=== PATIENT | male | born 1970 | race African-American/Black ===

== ENCOUNTER 2025-04-04 13:32 | Emergency (ER) | payer OTHER ==
[2025-04-04 14:20] LABS: #Basophils 0.03 10x3/uL (0.0-0.2); #Eosinophils 0.13 10x3/uL (0.0-0.5); #Monocytes 0.45 10x3/uL (0.0-1.1); #Neutrophils 2.77 10x3/uL (1.5-8.4); %Basophils 0.5 % (0.0-2.0); %Eosinophils 2.3 % (0.0-6.0); %Lymphocytes 39.6 % (18.0-47.0); %Monocytes 8.0 % (0.0-10.0); %Neutrophils 49.4 % (40.0-75.0); Hematocrit 43.8 % (38.8-50.0); Hemoglobin 12.9 g/dL (13.5-17.5); Mean Corpuscular Hemoglobin 23.5 pg (27.0-33.0); Mean Corpuscular Volume 79.6 fL (81.2-95.1); Platelet Count 191 10x3/uL (150-450); Red Blood Cell (RBC) Count 5.50 10x6/uL (4.32-5.72); White Blood Cell (WBC) Count 5.61 10x3/uL (3.5-10.5)
[2025-04-04 15:08] LABS: ALT (SGPT) 19 U/L (Less than 45); AST (SGOT) 16 U/L (11-34); Albumin 3.7 g/dL (3.1-4.5); Alkaline Phosphatase 83 U/L (40-110); Anion Gap 15 mmol/L (10-20); BUN (Urea Nitrogen) 12 mg/dL (8.4-25.7); Bilirubin, Total 0.5 mg/dL (0.3-1.2); Calc. Creatinine Clearance 0 mL/min (70-130); Calcium 8.9 mg/dL (7.8-10.44); Carbon Dioxide 26 mmol/L (22-29); Chloride 105 mmol/L (98-107); Globulin 3.3 g/dL (2.4-3.5); Glucose 117 mg/dL (70-105); Potassium 4.1 mmol/L (3.5-5.1); Sodium 142 mmol/L (136-145)
[2025-04-04 15:14] LABS: Troponin I Less than 0.010 ng/mL (< 0.028)
[2025-04-04 16:56] LABS: Troponin I 0.010 ng/mL (< 0.028)
== END 2025-04-04 17:27 ==
LOC: CSHERS 13:32 → EEVIPCON 13:32 → CSHERS 17:27
DX: R07.9 Chest pain, unspecified (principal); E11.9 Type 2 diabetes mellitus without complications
CPT/HCPCS: 36415; 71045; 80053; 83880; 84484; 85025; 93005; 96374; J2270

== ENCOUNTER 2025-05-19 19:50 | Inpatient (IN) | payer OTHER ==
[2025-05-19 20:28] LABS: #Basophils 0.03 10x3/uL (0.0-0.2); #Eosinophils 0.08 10x3/uL (0.0-0.5); #Monocytes 0.64 10x3/uL (0.0-1.1); #Neutrophils 7.02 10x3/uL (1.5-8.4); %Basophils 0.3 % (0.0-2.0); %Eosinophils 0.8 % (0.0-6.0); %Lymphocytes 20.7 % (18.0-47.0); %Monocytes 6.5 % (0.0-10.0); %Neutrophils 71.4 % (40.0-75.0); Hematocrit 42.9 % (38.8-50.0); Hemoglobin 12.6 g/dL (13.5-17.5); Mean Corpuscular Hemoglobin 23.2 pg (27.0-33.0); Mean Corpuscular Volume 78.9 fL (81.2-95.1); Platelet Count 181 10x3/uL (150-450); Red Blood Cell (RBC) Count 5.44 10x6/uL (4.32-5.72); White Blood Cell (WBC) Count 9.84 10x3/uL (3.5-10.5)
[2025-05-19] MEDS ORDERED: Furosemide 40 MG (4 mL) VIAL ONE (20:38)
[2025-05-19 20:47] LABS: ALT (SGPT) 20 U/L (Less than 45); AST (SGOT) 17 U/L (11-34); Albumin 3.7 g/dL (3.1-4.5); Alkaline Phosphatase 79 U/L (40-110); Anion Gap 16 mmol/L (10-20); BUN (Urea Nitrogen) 12 mg/dL (8.4-25.7); Bilirubin, Total 0.7 mg/dL (0.3-1.2); Calc. Creatinine Clearance 0 mL/min (70-130); Calcium 8.8 mg/dL (7.8-10.44); Carbon Dioxide 24 mmol/L (22-29); Chloride 102 mmol/L (98-107); Globulin 3.1 g/dL (2.4-3.5); Glucose 113 mg/dL (70-105); Potassium 4.3 mmol/L (3.5-5.1); Sodium 138 mmol/L (136-145)
[2025-05-19 20:49] LABS: Troponin I Less than 0.010 ng/mL (< 0.028)
[2025-05-19] MEDS ORDERED: Enoxaparin 30 MG (0.3 mL) SYRINGE ONE (23:20)
[2025-05-20] MEDS ORDERED: Nitroglycerin 0.4 MG TAB (25 Tab Bottle) SL PRN ×2 (00:51→17:20)
[2025-05-20 01:39] LABS: INR-International Normal Ratio 1.1; PTT 33.9 sec (22.0-33.0); Prothrombin Time 12.3 sec (9.5-12.1)
[2025-05-20 01:41] LABS: Magnesium 1.5 mg/dL (1.6-2.6)
[2025-05-20 01:48] LABS: Troponin I Less than 0.010 ng/mL (< 0.028)
[2025-05-20] MEDS ORDERED: Ketorolac Tromethamine 30 MG (1 mL) VIAL ONE (01:57)
[2025-05-20] MEDS: Ketorolac Tromethamine 30 MG (1 mL) VIAL IVP PRN (02:00)
[2025-05-20 04:13] LABS: #Basophils Less than 0.03 10x3/uL (0.0-0.2); #Eosinophils 0.05 10x3/uL (0.0-0.5); #Monocytes 0.83 10x3/uL (0.0-1.1); #Neutrophils 9.00 10x3/uL (1.5-8.4); %Basophils 0.2 % (0.0-2.0); %Eosinophils 0.4 % (0.0-6.0); %Lymphocytes 14.3 % (18.0-47.0); %Monocytes 7.2 % (0.0-10.0); %Neutrophils 77.6 % (40.0-75.0); Hematocrit 41.5 % (38.8-50.0); Hemoglobin 12.2 g/dL (13.5-17.5); Mean Corpuscular Hemoglobin 23.0 pg (27.0-33.0); Mean Corpuscular Volume 78.2 fL (81.2-95.1); Platelet Count 168 10x3/uL (150-450); Red Blood Cell (RBC) Count 5.31 10x6/uL (4.32-5.72); White Blood Cell (WBC) Count 11.60 10x3/uL (3.5-10.5)
[2025-05-20 04:28] LABS: Anion Gap 12 mmol/L (10-20); BUN (Urea Nitrogen) 13 mg/dL (8.4-25.7); Calc. Creatinine Clearance 0 mL/min (70-130); Calcium 9.0 mg/dL (7.8-10.44); Carbon Dioxide 28 mmol/L (22-29); Cardiac Risk 3.5 (Less than 4.5); Chloride 100 mmol/L (98-107); Cholesterol 120 mg/dl (< 200 Desired); Glucose 204 mg/dL (70-105); HDL Cholesterol 34 mg/dL (>60 Neg Risk); LDL Cholesterol, Calculated 73 mg/dL; Potassium 3.5 mmol/L (3.5-5.1); Sodium 136 mmol/L (136-145); Triglycerides 65 mg/dL (Less than 150)
[2025-05-20 04:31] LABS: Troponin I Less than 0.010 ng/mL (< 0.028)
[2025-05-20] MEDS ORDERED: Dextrose 50% Abboject 50 ML SYRINGE SLOW IVP PRN (04:41)
[2025-05-20] MEDS ORDERED: Glucagon 1 MG/ML KIT IM PRN (04:41)
[2025-05-20] MEDS ORDERED: Magnesium 2 GM/50 ML BAG (IN WATER) ONE (05:03)
[2025-05-20] MEDS: Magnesium 2 GM/50 ML(in water) 2 GM in Premix 1 BAG IVPB SCH (05:12)
[2025-05-20] MEDS ORDERED: Aspirin Chewable 81 MG TAB ONE (08:43)
[2025-05-20] MEDS ORDERED: Pantoprazole 40 MG DR.TAB ONE (08:44)
[2025-05-20] MEDS ORDERED: Losartan 25 MG TAB ONE (08:49)
[2025-05-20] MEDS ORDERED: Furosemide 40 MG TAB ONE (08:51)
[2025-05-20] MEDS ORDERED: Enoxaparin 80 MG (0.8 mL) SYRINGE SC SCH (09:00)
[2025-05-20] MEDS: Aspirin Chewable 81 MG TAB PO SCH (09:02)
[2025-05-20] MEDS: Furosemide 40 MG TAB PO SCH (09:03)
[2025-05-20] MEDS: Pantoprazole 40 MG DR.TAB PO SCH (09:03)
[2025-05-20] MEDS: Losartan 50 MG TAB PO SCH (09:03)
[2025-05-20] MEDS ORDERED: Enoxaparin 40 MG (0.4 mL) SYRINGE ONE (09:18)
[2025-05-20] MEDS: Enoxaparin 40 MG (0.4 mL) SYRINGE SC SCH ×2 (09:19→22:02)
[2025-05-20] MEDS: Metoprolol Succinate XL 100 MG ER.TAB PO SCH (11:56)
[2025-05-20] MEDS: carBAMazepine 200 MG TAB PO SCH ×2 (11:56→21:59)
[2025-05-20] MEDS ORDERED: hydrALAZINE 20 MG/ML VIAL SLOW IVP PRN (14:43)
[2025-05-20] MEDS: Mometasone 200 MCG/PUFF (1 INHALER) INH SCH (19:30)
[2025-05-20] MEDS ORDERED: TERAZOSIN HCL 10 MG PO SCH (21:00)
[2025-05-20] MEDS ORDERED: CALCIUM POLYCARBOPHIL 625 MG PO SCH (21:00)
[2025-05-20] MEDS ORDERED: Pantoprazole 40 MG DR.TAB PO SCH (21:00)
[2025-05-20] MEDS: Lactulose 20 GM (30 mL) UDCUP PO SCH (22:00)
[2025-05-20] MEDS: Acetaminophen 325 MG TAB PO PRN (22:14)
[2025-05-21 03:32] LABS: #Basophils Less than 0.03 10x3/uL (0.0-0.2); #Eosinophils Less than 0.03 10x3/uL (0.0-0.5); #Monocytes 0.21 10x3/uL (0.0-1.1); #Neutrophils 9.00 10x3/uL (1.5-8.4); %Basophils 0.1 % (0.0-2.0); %Eosinophils 0.2 % (0.0-6.0); %Lymphocytes 9.1 % (18.0-47.0); %Monocytes 2.1 % (0.0-10.0); %Neutrophils 88.0 % (40.0-75.0); Hematocrit 41.3 % (38.8-50.0); Hemoglobin 12.3 g/dL (13.5-17.5); Mean Corpuscular Hemoglobin 23.3 pg (27.0-33.0); Mean Corpuscular Volume 78.2 fL (81.2-95.1); Platelet Count 182 10x3/uL (150-450); Red Blood Cell (RBC) Count 5.28 10x6/uL (4.32-5.72); White Blood Cell (WBC) Count 10.22 10x3/uL (3.5-10.5)
[2025-05-21 03:47] LABS: Anion Gap 13 mmol/L (10-20); BUN (Urea Nitrogen) 16 mg/dL (8.4-25.7); Calc. Creatinine Clearance 186 mL/min (70-130); Calcium 8.9 mg/dL (7.8-10.44); Carbon Dioxide 26 mmol/L (22-29); Chloride 103 mmol/L (98-107); Glucose 196 mg/dL (70-105); Potassium 4.4 mmol/L (3.5-5.1); Sodium 138 mmol/L (136-145)
[2025-05-21] MEDS ORDERED: Polyvinyl Alcohol 1.4%/Povidone 0.6% Opth Drops EA EYE PRN (06:10)
[2025-05-21] MEDS: metFORMIN 500 MG TAB PO SCH (08:24)
[2025-05-21] MEDS: Aspirin Chewable 81 MG TAB PO SCH (08:26)
[2025-05-22 02:14] VITALS: BMI 61.8
[2025-05-22 07:39] VITALS: BP 146/90
[2025-05-22 10:07] VITALS: TEMP 98.7
== END 2025-05-22 12:15 | DRG 202 ==
LOC: CSHERS 19:50 → EEVIPCON 19:50 → CSHERHOLD 05-20 00:51 → CSHICU 05-20 10:00 → OBSVTOIN 05-20 15:14
PROVIDERS: ADMIT Family Medicine; ATTEND Hospitalist
PROC: 5A09357 Assistance with Respiratory Ventilation, Less than 24 Consecutive Hours, Continuous Positive Airway Pressure (ICD-10-PCS; principal; 2025-05-20)
DX: J20.8 Acute bronchitis due to other specified organisms (principal); J45.31 Mild persistent asthma with (acute) exacerbation; J96.11 Chronic respiratory failure with hypoxia; R07.9 Chest pain, unspecified; I10 Essential (primary) hypertension; E11.9 Type 2 diabetes mellitus without complications; I49.3 Ventricular premature depolarization; F10.90 Alcohol use, unspecified, uncomplicated; E66.01 Morbid (severe) obesity due to excess calories; G47.33 Obstructive sleep apnea (adult) (pediatric); K21.9 Gastro-esophageal reflux disease without esophagitis; I35.0 Nonrheumatic aortic (valve) stenosis; E11.42 Type 2 diabetes mellitus with diabetic polyneuropathy; M19.90 Unspecified osteoarthritis, unspecified site; F32.A Depression, unspecified; F39 Unspecified mood [affective] disorder; Z98.890 Other specified postprocedural states; Z88.8 Allergy status to other drugs, medicaments and biological substances; Z91.018 Allergy to other foods; Z91.048 Other nonmedicinal substance allergy status; Z79.899 Other long term (current) drug therapy; Z79.82 Long term (current) use of aspirin; Z79.84 Long term (current) use of oral hypoglycemic drugs
CPT/HCPCS: 36415; 36416; 71045; 80048; 80053; 80061; 83735; 83880; 84484; 85025; 85379; 85610; 85730; 87081; 87428; 87430; 93005; 93010; 93306; 93970; 94640; 94660; 94664; 94760; 94762; 96372; 96375; 96376; G0378; J1650; J1815; J1885; J1940; J2919; J3475; J7512; J7626